=== PATIENT | female | born 1965 | race Caucasian/White ===

== ENCOUNTER 2019-03-04 11:28 | Emergency (ER) | payer OTHER ==
[~2019-03-04] VITALS: Ht 160 cm; Wt 86.0 kg
--- NOTE | 2019-03-04 11:51 | NUR ---
assumed care of pt, pt to bathroom. as
--- NOTE | 2019-03-04 11:59 | NUR ---
pt to ed w/ friend. c/o cough, sob, "i can't catch my breath" ppd smoker. c/o chest pain on coughing. hx lobectomy for unknown reason. received zpack at urgent care. loud coarse cough. wheezing R side. nsr on monitor. 94% RA. plan for cxr. call wei in reach. as
[2019-03-04] MEDS ORDERED: ALBUTEROL/IPRATROPIUM 2.5MG/0.5MG, 3 ML ONE (12:15)
[2019-03-04] MEDS ORDERED: ALBUTEROL/IPRATROPIUM 2.5MG/0.5MG, 3 ML NPPB ONE (12:30)
--- NOTE | 2019-03-04 12:42 | NUR ---
pt asking for pain rx to be refilled by ED doc bc her PCP is in [place] and she has stayed here longer than she meant to d/t illness. Dr. Eller made aware. pt sts she takes 100 mg morphine TID and 30 mg oxycodone TID. Then sts that she does not atually know if those prescriptions are correct. Sts "I'll just end up back here" multiple times. aware.
[2019-03-04 12:43] VITALS: BP 104/57
--- NOTE | 2019-03-04 13:01 | NUR ---
given spacer and instructed how to use. as
== END 2019-03-04 13:39 | disposition home or self-care (01) ==
LOC: ED 12:28
DX: J44.1 Chronic obstructive pulmonary disease with (acute) exacerbation (principal)
CPT/HCPCS: 71045; 93005; 94640; 99283; J7512; J7620